=== PATIENT | male | born 1995 | race African-American/Black ===

== ENCOUNTER 2017-09-04 20:21 | Emergency (ER) | payer OTHER ==
[~2017-09-04] VITALS: Ht 175.3 cm; Wt 78.0 kg
[2017-09-04 21:38] VITALS: BP 145/68
[2017-09-04] MEDS ORDERED: IBUPROFEN 600MG TABLET PO ONE (22:15)
== END 2017-09-04 22:32 | disposition home or self-care (01) ==
LOC: ER 22:17
DX: T81.30XD Disruption of wound, unspecified, subsequent encounter (principal); X58.XXXD Exposure to other specified factors, subsequent encounter; Y93.89 Activity, other specified; Y99.8 Other external cause status; Y92.89 Other specified places as the place of occurrence of the external cause
CPT/HCPCS: 99283